=== PATIENT | male | born 1975 | race Caucasian/White ===

== ENCOUNTER 2018-03-22 22:37 | Emergency (ER) | payer OTHER, SELFPAY ==
[2018-03-22 22:44] VITALS: BP 147/106; PULSE 71; RESP 18; TEMP 36.3; O2SAT 99; BMI 28.5
--- NOTE | 2018-03-23 00:08 | ED_ITS ---
HPI - Eye Problem General Chief complaint: Eye Problems Stated complaint: SOMETHING IN HIS LEFT EYE, RED AND IRRITATED Time Seen by Provider: 03/22/18 22:43 Source: patient Mode of arrival: ambulatory History of Present Illness HPI Narrative: Patient is an otherwise healthy 42-year-old male who wears glasses but does not wear contacts here for evaluation of potential foreign body in his left eye. Patient states that earlier today he was working with some wood and states that he felt like he got something in his left eye. Has been irritated since then. Has not tried anything prior to arrival. Related Data Previous Rx's Medication Instructions Recorded erythromycin 0.5 inch EYE-LEFT Q6H #1 gram 03/23/18 Allergies Allergy/AdvReac Type Severity Reaction Status Date / Time No Known Drug Allergies Allergy Verified 03/22/18 22:48 Review of Systems Constitutional Denies fever(s) and Denies headache(s) Eyes Comments: Left eye red and irritated with foreign body sensation ENT Ears, Nose, Mouth, and Throat: Denies vertigo, Denies dizziness and Denies headache(s) Cardiovascular Denies chest pain and Denies dyspnea Respiratory Denies dyspnea Integumentary/Breasts Denies lesions and Denies rash Neurologic Denies vertigo, Denies dizziness and Denies headache(s) Hematologic/Lymphatic Denies easy bleeding [facility] Medical History Healthy adult (Acute) Surgical History No history of previous surgery (Acute) Social History Smoking Status: Never smoker Exam Initial Vital Signs Initial Vital Signs: Vital Signs Temperature 97.3 F L 03/22/18 22:44 Pulse Rate 71 03/22/18 22:44 Respiratory Rate 18 03/22/18 22:44 Blood Pressure 147/106 H 03/22/18 22:44 Pulse Oximetry 99 03/22/18 22:44 Const General: cooperative, healthy appearing, well developed, well groomed and No acute distress Orientation: alert, awake and oriented x3 HENMT Head: normal to inspection, normocephalic and atraumatic Ears: hearing grossly normal bilaterally Nose: external nose normal Face and sinus: normal facial exam Mouth: oral mucosae normal Eyes Pupils: PERRL EOM: EOM intact bilaterally Other: Right eye unremarkable Left eye with an obvious foreign body seen without visual aid at the 5:00 position outside the visual axis however inside the limbus. Upon evaluation under the slit lamp this appears to be a rust ring however the patient states that he was not working with metal. Resp Effort & Inspection: normal respiratory effort Skin Lesions: no lesions Rashes: no rashes Neuro General: alert, awake and oriented x3 Extrem General: capillary refill normal Psych Appearance: grossly normal and well kempt Procedures Foreign Body EYE Time Out performed: Yes Location: eye (L) Topical anesthetic used: proparacaine Foreign body: other (Rest during) Evidence of corneal penetration: No Technique: electric tameka Procedure performed under: slit-lamp Post-procedure medication: ophthalmic antibiotic Patient tolerated procedure: well and no complications Complications: residual rust ring Course Orders Ordered: Discontinued Medications Hydrocodone Bitart/Acetaminophen (Vicodin Prepack) 1 bottle MISC SEEINSTR ONE Stop: 03/23/18 00:09 Last Admin: 03/23/18 00:26 Dose: 1 bottle Erythromycin (Erythromycin Ophth Oint) 1 applic EYE-LEFT NOW ONE Stop: 03/23/18 00:09 Last Admin: 03/23/18 00:26 Dose: 1 applic Vital Signs - 8 hr 03/22/18 22:44 03/23/18 00:30 Temperature 97.3 F L 97.4 F L Pulse Rate 71 70 Respiratory Rate 18 18 Blood Pressure 147/106 H 147/90 H Pulse Oximetry 99 98 MDM - Eye Problem MDM Narrative Medical decision making narrative: Removed the vast majority of the ring with the bur under slit lamp. No other foreign bodies were seen with both eversion of the inferior and superior eyelids. Patient was given a small amount of erythromycin ointment here in the emergency department and then also a prescription for this. He has an AV area. He was instructed that he needs to be cleared by his medical provider prior to any future flight. He was instructed he needed to follow up with his medical and also Ophthalmology [facility] [employer] on Saturday morning for continued evaluation. There were no signs of corneal perforation. Patient expressed understanding and agreement with plan. Discharge Plan Departure Patient Disposition: Home Clinical Impression: Foreign body, eye, Corneal abrasion Discharge Date/Time: 03/23/18 00:30 Interventions: ED Discharge Assessment Last Done: 03/23/18 00:30 Instructions: DI for Corneal Abrasion, DI for Foreign Body in the Eye Activity Restrictions/Additional Instructions: Use the antibiotic ointment that you were prescribed as directed. You can use the pain medication as directed however do tell your medical that you are taking this medicine because it will pop positive in a urinalysis. I highly recommend that you follow up [place] to have a re-examination. You can also call the ophthalmology group here at [facility] at [phone]. Return to the emergency department for any new or worsening symptoms. Prescriptions: New erythromycin 5 mg/gram (0.5 %) ointment 0.5 inch EYE-LEFT Q6H Qty: 1 RF: 0
[2018-03-23] MEDS: ERYTHROMYCIN OPHTH 1 GM OINT 1 APPLIC EYE-LEFT (00:26)
[2018-03-23] MEDS: HYDROCODONE/ACET 5/325 PREPACK 1 BOTTLE MISC (00:26)
[2018-03-23 00:30] VITALS: BP 147/90; PULSE 70; RESP 18; TEMP 36.3; O2SAT 98
== END 2018-03-23 00:30 | disposition home or self-care (01) ==
PROVIDERS: Emergency Provider Emergency Medicine
DX: S05.52XA Penetrating wound with foreign body of left eyeball, initial encounter (principal); S05.02XA Injury of conjunctiva and corneal abrasion without foreign body, left eye, initial encounter
CPT/HCPCS: 99283